=== PATIENT | female | born 1945 | race Caucasian/White ===

== ENCOUNTER → 2017-11-30 | Outpatient (CLI) | payer MEDICARE, OTHER ==
--- NOTE | 2017-12-02 09:37 | Diagnostic Imaging Report ---
INDICATION: Routine screening. Comparison is made with prior study from 11/18/2015 and 05/09/2013. 2-D and 3-D bilateral screening mammography was performed with CAD. The current study was also evaluated with a Computer Aided Detection (CAD) system. FINDINGS: Scattered fibronodular densities are identified bilaterally. The parenchymal pattern is stable. No dominant mass or malignant-appearing microcalcifications are seen. There are benign calcifications bilaterally. The axillae are unremarkable. IMPRESSION: No mammographic features suspicious for malignancy are identified. ACR BI-RADS Category 2: Benign findings. Result letter will be mailed to the patient. Note: At least 10% of breast cancer is not imaged by mammography. Dictated by: Dictated on workstation # [id number]
== END ==
LOC: RAD 10:08
PROVIDERS: ATTEND Nurse Practitioner Family
DX: Z12.31 Encounter for screening mammogram for malignant neoplasm of breast (principal)
CPT/HCPCS: 77067

== ENCOUNTER 2019-04-17 10:01 | Emergency (ER) | payer MEDICARE, OTHER ==
[~2019-04-17] VITALS: Ht 172.7 cm; Wt 60.0 kg
--- NOTE | 2019-04-17 11:28 | ED EENT ---
History of Present Illness General Chief Complaint: Nasal Problems Stated Complaint: NOSE BLEED Nursing Triage Note: Pt to ED with report of nose bleed from R nare that began at 0815 this morning. Pt has applied pressure and no bleeding present at time of assessment. Pt denies pain or injury. History of Present Illness Date Seen by Provider: Apr 17, 2019 Time Seen by Provider: 11:05 Initial Comments 73-year-old female reports that her nose began bleeding and approximately 8:15 this morning. She does take aspirin 81 mg every evening. She has not had problems with epistaxis in the past, however she is noted to be more of a nose breather due to her emphysema. The bleeding had decreased significantly and after waiting to be seen she was no longer having any active bleeding. She tried compression and ice with some improvement home. Timing/Duration: this morning Location: nose (right nare) Prearrival Treatment: squeezing nostrils Associated Symptoms: denies symptoms, nasal congestion/drainage Allergies and Home Medications Allergies Coded Allergies: codeine (Unverified Adverse Reaction, Unknown, Nausea, 04/17/19) Patient Home Medication List Home Medication List Reviewed: Yes Review of Systems Review of Systems Constitutional: no symptoms reported, see HPI Nose: see HPI, epistaxis All Other Systems Reviewed Negative Unless Noted: Yes Past Ubqmdlf-Lusyio-Tuqmfz Hx Past Med/Social Hx: Reviewed Nursing Past Med/Soc Hx Patient Social History Alcohol Use: Denies Use Recreational Drug Use: No Smoking Status: Current Everyday Smoker Type Used: Cigarettes 2nd Hand Smoke Exposure: Yes Recent Foreign Travel: No Contact w/Someone Who Travel: No Recent Infectious Disease Expo: No Recent Hopitalizations: No Physical Abuse: No Sexual Abuse: No Seasonal Allergies Seasonal Allergies: No Past Medical History Surgeries: Yes (anal fistula, ) Rectal Respiratory: Yes Emphysema Cardiac: No Neurological: No Genitourinary: No Gastrointestinal: No Musculoskeletal: No Endocrine: No HEENT: No Cancer: No Psychosocial: No Integumentary: No Physical Exam Vital Signs Vital Signs - First Documented 04/17/19 10:57 Temp 37.2 Pulse 70 Resp 20 B/P (MAP) 142/99 (113) Pulse Ox 96 O2 Delivery Room Air Height, Weight, BMI Height: '" Weight: lbs. oz. kg; 20.00 BMI Method: General Appearance: WD/WN, no apparent distress Ears: bilateral ear auricle normal, bilateral ear canal normal, bilateral ear TM normal Nose: normal inspection, active bleeding (Trace from right nare, but only when she touches the nose. Clotting noted on right middle turbinate. ), dried blood; No foreign body, No sinus tenderness Mouth/Throat: normal mouth inspection, pharynx normal (No PND or blood visualized. ) Neck: non-tender, full range of motion, supple, normal inspection Cardiovascular: normal peripheral pulses, regular rate, rhythm Respiratory: chest non-tender, lungs clear, normal breath sounds Neurologic/Psychiatric: no motor/sensory deficits, alert, normal mood/affect, oriented x 3 Skin: normal color, warm/dry Progress/Results/Core Measures Results/Orders Vital Signs/I&O 04/17/19 04/17/19 10:57 11:30 Temp 37.2 37.2 Pulse 70 70 Resp 20 20 B/P (MAP) 142/99 (113) 124/86 (113) Pulse Ox 96 92 O2 Delivery Room Air Room Air Blood Pressure Mean: 113 Progress Progress Note : Time: 11:05 Progress Note Patient seen and evaluated, 2 x 2 dressing inserted and right nare. No further bleeding. Discharge instructions and return precautions reviewed. Departure Impression Primary Impression: Epistaxis Disposition: 01 HOME, SELF-CARE Condition: Improved Departure-Patient Inst. Decision time for Depature: 11:20 Referrals: PHYLLIS VALDEZ MD (PCP/Family) Primary Care Physician Patient Instructions: Nosebleeds (DC) Add. Discharge Instructions: Leave gauze in place for the next 3-4 hours. Gentle pressure on outside of nose, if bleedings resumes. Apply ice pack to nose, if needed. Avoid blowing your nose Use saline mist in nares every 2-3 hours, especially before going to bed. Coolmist vaporizer in room at night. Follow-up with your primary care provider if symptoms worsen. Return to the emergency department for new, urgent healthcare problems. All discharge instructions reviewed with patient and/or family. Voiced understanding. Copy Copies To 1: PHYLLIS VALDEZ MD, AMY ARNP Apr 17, 2019 11:28
[2019-04-17] MEDS ORDERED: ALPR0.254 (11:29)
[2019-04-17] MEDS ORDERED: ESCI20TA45 (11:29)
[2019-04-17] MEDS ORDERED: CYCL1DRO (11:29)
[2019-04-17 11:30] VITALS: BP 124/86
== END 2019-04-17 11:30 | disposition home or self-care (01) ==
LOC: EDUNIT# 10:01 → ER 10:03
DX: R04.0 Epistaxis (principal); J43.9 Emphysema, unspecified; F17.210 Nicotine dependence, cigarettes, uncomplicated; Z88.5 Allergy status to narcotic agent
CPT/HCPCS: 99282

== ENCOUNTER → 2019-12-06 | Outpatient (CLI) | payer MEDICARE, OTHER ==
[~2019-12-06] MED LIST: ALPR0.254; CYCL1DRO; ESCI20TA45
--- NOTE | 2019-12-06 11:09 | Diagnostic Imaging Report ---
INDICATION: Routine screening. COMPARISON: 11/30/2017 and 11/18/2015. TECHNIQUE: 2D and 3D bilateral screening mammography was performed with CAD. FINDINGS: Scattered fibroglandular densities are identified bilaterally. There are benign calcifications bilaterally. No mass or malignant appearing microcalcifications are seen. The axillae are unremarkable. IMPRESSION: No mammographic features suspicious for malignancy are identified. ACR BI-RADS Category 2: Benign findings. Result letter will be mailed to the patient. Note: At least 10% of breast cancer is not imaged by mammography. Dictated by: Dictated on workstation # [id number]
== END ==
LOC: RAD 09:10
PROVIDERS: ATTEND Nurse Practitioner Family
DX: Z12.31 Encounter for screening mammogram for malignant neoplasm of breast (principal)
CPT/HCPCS: 77063; 77067

== ENCOUNTER → 2021-12-23 | Outpatient (CLI) | payer MEDICARE, OTHER ==
[~2021-12-23] MED LIST changes: +ALPR.25T; -ALPR0.254; +ESCI20TA39; -ESCI20TA45
--- NOTE | 2021-12-23 14:24 | Diagnostic Imaging Report ---
Indication: Routine screening. Comparison is made with prior mammogram from 12/06/2019 11/30/2017. 2-D and 3-D bilateral screening mammography was performed CAD. Scattered fibroglandular densities are identified bilaterally. No mass or malignant-appearing microcalcifications are seen. There are benign calcifications bilaterally. Axillae are unremarkable. IMPRESSION: BI-RADS Category 2 No mammographic features suspicious for malignancy are identified. ACR BI-RADS Category 2: Benign findings. Result letter will be mailed to the patient. Note: At least 10% of breast cancer is not imaged by mammography. Dictated by: Dictated on workstation # [id number]
--- NOTE | 2021-12-23 16:31 | Diagnostic Imaging Report ---
INDICATION: 76-year-old asymptomatic postmenopausal female COMPARISON: 04/09/2011 FINDINGS: AP Spine L1-L4: [BMD (g/cm2): 1.114] [T-Score: -0.7] [Z-Score: 1.2] [BMD Previous: 1.202] [BMD % Change: -7.3] LT Hip Neck: [BMD (g/cm2): 0.950] [T-Score: -0.6] [Z-Score: 1.3] LT Hip Total: [BMD (g/cm2):0.873] [T-Score:-1.1] [Z-Score: 0.7] [BMD Previous: 0.950] [BMD % Change: -8.1] RT Hip Neck: [BMD (g/cm2):0.964] [T-Score:-0.5] [Z-Score:-1.4] RT Hip Total: [BMD (g/cm2):0.911] [T-score:-0.8] [Z-Score:1.0] [BMD Previous:0.990] [BMD % Change:-8.0] World Health Organization criteria for BMD interpretation classify patients as Normal (T-score at or above -1.0), Osteopenic (T-score between -1.0 and -2.5) or Osteoporotic (T-score at or below -2.5). LIMITATIONS AND MODIFICATION: None. FRACTURE RISK (FRAX SCORE): The ten year probability of (%): Major Osteoporotic Fracture: [7.4] Hip Fracture: [1.6] IMPRESSION: 1. Osteopenia (Low bone mass). 2. Bone mineral density has decreased by since prior exam. 3. See below National Osteoporosis Foundation guidelines on when to potentially initiate pharmacologic therapy. Based on the National Osteoporosis Foundation Guidelines, pharmacologic treatment should be initiated in any of the following, unless clinical conditions suggest otherwise: * Any patient with prior fragility fracture of the hip or vertebrae. A spine fracture indicates 5X risk for subsequent spine fracture and 2X risk for subsequent hip fracture. * Osteoporosis (T-score <-2.5). * Postmenopausal women and men age 50 and older with low bone mass/osteopenia (T-score between -1.0 and -2.5) by DXA and 10-year major osteoporotic fracture greater than 20% or a 10-year probability of hip fracture greater than 3%. These fracture risks are supplied above in the FRAX score, if applicable. * Clinician judgement and/or patient preferences may indicate treatment for people with 10-year fracture probabilities above or below these levels. Dictated by: Dictated on workstation # [id number]
== END ==
LOC: RAD 11:15
PROVIDERS: ATTEND Nurse Practitioner Family
DX: Z12.31 Encounter for screening mammogram for malignant neoplasm of breast (principal); M85.88 Other specified disorders of bone density and structure, other site; Z78.0 Asymptomatic menopausal state
CPT/HCPCS: 77063; 77067; 77080